=== PATIENT | male | born 1995 | race Caucasian/White ===

== ENCOUNTER 2017-01-12 16:20 | Emergency (ER) | payer BC ==
[~2017-01-12] VITALS: Ht 182.9 cm; Wt 74.8 kg
--- NOTE | ~2017-01-12 | CR72 ---
[facility]. [facility] A Service of [facility] RADIOLOGY TEXT RESULTS PATIENT: ASHA RODRIGUEZ LOCATION: SED : 95 UNIT #: [id number] AGE: [address]: Dae Harley SEX: M ORDER DR: [id number] [address] [address] [id number] E MR#: [id number] Acc #: [id number] NAME: ASHA RODRIGUEZ : 1995 SEX: M STUDY DATE/TIME: 01/12/2017 17:43 UNIT: SED ROOM: STUDY DESCRIPTION: CR Chest Single View Portable Attending Physician: Dae Harley P.A.-C. Ordering Physician: Dae Harley P.A.-C. Primary Care Physician: Primary Care Physician No MEDICAL IMAGING REPORT This report is preliminary unless electronic signature is present. EXAM Portable chest 01/12/2017 HISTORY 21-year-old male with chest pain today. COMPARISON None. FINDINGS Frontal chest demonstrates clear lungs. No pleural effusion or pneumothorax. Heart size and mediastinum normal. Pulmonary vasculature normal. IMPRESSION No acute cardiopulmonary findings. Dictated by... Forrest Barnes M.D. THIS IS AN ELECTRONICALLY VERIFIED REPORT Forrest Barnes M.D. at 01/13/2017 2:15 PM DAVID/deb TD: 01/13/2017 12:34 JOB #: [id number] MEDICAL IMAGING REPORT Page 1 of 1
--- NOTE | ~2017-01-12 | EKG ---
PATIENT: ASHA RODRIGUEZ UNIT #: [id number] Ventricular Rate: 98 BPM Atrial Rate: 98 BPM P-R Interval: 156 ms QRS Duration: 96 ms Q-T Interval: 366 ms QTC Calculation(Bezet): 467 ms P Erie: 48 degrees Calculated R Erie: 38 degrees Calculated T Erie: 21 degrees Diagnosis Line: Normal sinus rhythm with sinus arrhythmia Diagnosis Line: Possible Left atrial enlargement Diagnosis Line: Borderline ECG Diagnosis Line: No previous ECGs available Diagnosis Line: Confirmed by KYLE SELF MD ([id number]) on Diagnosis Line: 01/13/2017 3:50:31 PM INTERPRETING MD: ARAMIS MENDOZA
[2017-01-12 17:16] LABS: BASOPHIL# 0.1 X10e3 (0-0.3); BASOPHIL% 0.8 % (0-2.5); EOSINOPHIL# 0.4 X10e3 (0-0.7); EOSINOPHIL% 3.8 % (0.0-7.0); HEMATOCRIT 43.6 % (38.0-50.0); HEMOGLOBIN 14.8 gm/dL (13.0-16.0); LYMPHOCYTE# 1.8 X10e3 (1.0-3.5); LYMPHOCYTE% 15.6 % (17.0-45.0); MEAN CELL VOLUME 86.5 FL (83-96); MEAN CORPUSCULAR HEMOGLOBIN 29.3 PG (28-34); MEAN CORPUSCULAR HGB CONC 33.9 g/dL (30-36); MEAN PLATELET VOLUME 7.6 FL (6.5-11.5); MONOCYTE# 0.5 X10e3 (0-1.0); MONOCYTE% 4.7 % (3.0-12.0); NEUTROPHIL# 8.8 X10e3 (1.5-7.1); NEUTROPHIL% 75.1 % (40-75); PLATELET COUNT 266 X10e3 (140-420); RED BLOOD COUNT 5.04 X10e (3.90-5.60); RED CELL DISTRIBUTION WIDTH 12.8 % (11.0-15.5); WHITE BLOOD COUNT 11.6 X10e3 (4.0-10.5)
[2017-01-12 17:17] LABS: DIFF IND NO
[2017-01-12 17:38] LABS: POC - TROPONIN <0.05 ng/mL (<=0.05)
[2017-01-12 17:42] LABS: ALBUMIN SERUM 4.6 g/dL (3.5-5.0); ALKALINE PHOSPHATASE 69 U/L (32-92); ALT (SGPT) 16 U/L (10-40); AST (SGOT) 17 U/L (10-42); BILIRUBIN,TOTAL 0.3 mg/dL (0.2-2.0); BLOOD UREA NITROGEN 14 mg/dL (9-23); BUN/CREATININE RATIO 15.55; CARBON DIOXIDE 27 mmol/L (22-31); CHLORIDE 104 mmol/L (100-111); CPK (CREATINE PHOSPHOKINASE) 70 IU/L (36-174); CREATININE SERUM 0.9 mg/dL (0.6-1.4); GLOM FILT RATE Estimated 121.7 mL/min (>60); GLUCOSE FASTING 103 mg/dL (70-110); POTASSIUM 3.9 mmol/L (3.5-5.1); PROTEIN TOTAL SERUM 7.5 g/dL (6.0-8.3); SODIUM 136 mmol/L (135-145)
[2017-01-12 17:51] LABS: BILIRUBIN, DIRECT <0.1 mg/dL (0.0-0.2); BILIRUBIN,INDIRECT 0.2 mg/dL (0.0-0.9)
[2017-01-12 19:03] LABS: POC - CKMB <1.0 ng/mL (0.0-7.9)
[2017-01-12 19:04] LABS: POC - TROPONIN <0.05 ng/mL (<=0.05)
== END 2017-01-12 19:28 | disposition home or self-care (01) ==
LOC: SED 16:20
PROVIDERS: Physician Assistant
DX: R09.1 Pleurisy (principal); Z88.8 Allergy status to other drugs, medicaments and biological substances
CPT/HCPCS: 36415; 71010; 80048; 80076; 82550; 82553; 84484; 85025; 85379; 93005; 96361; 96374; 99285; J1885